=== PATIENT | male | born 1995 ===

== ENCOUNTER 2021-11-17 09:13 | Inpatient (IN) ==
[2021-11-17 09:43] LABS: Basophils % 0.4 %; Eosinophils # 0.4 K/mcL (0.0-0.6); Hematocrit 40.4 % (37.5-50.1); Hemoglobin 13.2 g/dL (12.9-16.9); Immature Granulocytes % 0.3 % (0-4); Lymphocytes # 1.9 K/mcL (0.6-4.6); Lymphocytes % 20.3 %; Mean Corpuscular HGB Conc 32.7 g/dL (31.6-35.5); Mean Corpuscular Hemoglobin 27.7 pg (28.0-33.3); Mean Corpuscular Volume 84.9 fL (83.0-100.0); Mean Platelet Volume 10.2 fL (9.4-12.4); Monocytes # 0.7 K/mcL (0.0-1.3); Monocytes % 7.4 %; Neutrophils # 6.4 K/mcL (1.6-8.9); Platelet Count 437 K/mcL (140-400); Red Blood Count 4.76 M/mcL (4.19-5.50); Red Cell Distribution Width 12.5 % (11.5-14.5); Segmented Neutrophils % 67.6 %; White Blood Count 9.5 K/mcL (4.3-11.1)
[2021-11-17 10:06] LABS: Acetaminophen < 10 mcg/mL (10-20); BUN/Creatinine Ratio 22 (6-26); Blood Urea Nitrogen 21 mg/dL (6-20); Calcium 9.6 mg/dL (8.6-10.3); Carbon Dioxide 30 mEq/L (23-29); Chloride 100 mEq/L (98-107); Chol/HDL Ratio 5.5 (0-4.9); Cholesterol 154 mg/dL (< 200); Ethanol < 10 mg/dL (Less than 10); Glucose 61 mg/dL (70-105); HDL Cholesterol 28 mg/dL (40-59); LDL Cholesterol,Calculated 89 mg/dL (< 100); Osmolality,Calculated 287 (280-300); Potassium 3.2 mEq/L (3.5-5.1); Salicylate < 2.5 mg/dL (15.0-30.0); Sodium 138 mEq/L (136-145); Triglycerides 187 mg/dL (< 150); eGFR For African Americans > 60 (> 60); eGFR For Non-African Americans > 60 (> 60)
[2021-11-17] MEDS ORDERED: Potassium Effervescent 25 MEQ TABLET.EFF PO ONE (10:16)
[2021-11-17 10:48] LABS: Estimated Average Glucose 103 mg/dl; Hemoglobin A1C 5.2 %
[2021-11-17 11:07] LABS: Bilirubin,Urine Negative (Negative); Blood,Urine Negative (Negative); Clarity,Urine Clear (Clear); Color,Urine Yellow (Yellow); Glucose,Urine (UA) Normal (Normal); Ketones,Urine Negative (Negative); Leukocyte Esterase,Urine Negative (Negative); Mucus,Urine Few per lpf (None-Few); Nitrite,Urine Negative (Negative); Protein,Urine 30 mg/dL (Neg-Trace); RBC,Urine 0-3 per hpf (0-3); Specific Gravity,Urine > 1.030 (1.010-1.025); Squamous Epithelial Cell,Urine Few per hpf (None-Few); WBC,Urine 0-3 per hpf (0-3)
[2021-11-17 11:19] LABS: Amphetamine Screen,Urine Positive ng/mL (Cutoff=1000); Barbiturate Screen,Urine Negative ng/mL (Cutoff=200); Benzodiazepines Screen,Urine Negative ng/mL (Cutoff=200); Cannabinoid Screen,Urine Positive ng/mL (Cutoff = 50); Cocaine Screen,Urine Negative ng/mL (Cutoff= 300); Opiate Screen,Urine Negative ng/mL (Cutoff=300); Phencyclidine Screen,Urine Negative ng/mL (Cutoff=25)
[2021-11-17] MEDS: Nicotine 21 MG PATCH.TD24 TD SCH (12:30)
[2021-11-17 15:06] LABS: Influenza A PCR Negative (Negative); Influenza B PCR Negative (Negative); Resp. Syncytial Virus PCR Negative (Negative); SARS-CoV-2 by PCR (In House) Negative (Negative)
[2021-11-18] MEDS: Nicotine 21 MG PATCH.TD24 TD SCH (09:14)
[2021-11-18] MEDS ORDERED: Neosporin OINT 1 APPL PACKET TP ONE (16:49)
[2021-11-18] MEDS ORDERED: hydrOXYzine pamoate 25 MG CAPSULE PO PRN (19:58)
[2021-11-18] MEDS ORDERED: Acetaminophen 325 MG TABLET PO PRN (19:58)
[2021-11-18] MEDS ORDERED: Haloperidol Lactate 5 MG/ML VIAL IM PRN (19:58)
[2021-11-18] MEDS ORDERED: *HR* LORazepam 1 MG TABLET PO PRN (19:58)
[2021-11-18] MEDS ORDERED: *HR* LORazepam 2 MG/ML VIAL IM PRN (19:58)
[2021-11-18] MEDS ORDERED: haloperidoL 5 MG TABLET PO PRN (19:58)
[2021-11-18] MEDS ORDERED: traZODone 50 MG TABLET PO PRN (19:58)
[2021-11-18] MEDS ORDERED: MOM Conc 10 ML UD.LIQ PO PRN (19:58)
[2021-11-19] MEDS: Vitamin B Complex/Vit C/Vit E 1 EACH TABLET PO SCH (08:33)
[2021-11-19] MEDS: Nicotine 21 MG PATCH.TD24 TD SCH (08:33)
[2021-11-19] MEDS: Neosporin OINT 1 APPL PACKET TP PRN ×2 (10:48→20:34)
[2021-11-19] MEDS: QUEtiapine Fumarate 100 MG TABLET PO SCH (20:34)
[2021-11-20] MEDS: Nicotine 21 MG PATCH.TD24 TD SCH (08:26)
[2021-11-20] MEDS: Vitamin B Complex/Vit C/Vit E 1 EACH TABLET PO SCH (08:27)
[2021-11-20] MEDS: QUEtiapine Fumarate 100 MG TABLET PO SCH (20:23)
[2021-11-21] MEDS: Nicotine 21 MG PATCH.TD24 TD SCH (08:36)
[2021-11-21] MEDS: Vitamin B Complex/Vit C/Vit E 1 EACH TABLET PO SCH (08:37)
[2021-11-21 08:58] LABS: Basophils % 0.5 %; Eosinophils # 0.3 K/mcL (0.0-0.6); Eosinophils % 3.1 %; Hematocrit 39.6 % (37.5-50.1); Hemoglobin 13.1 g/dL (12.9-16.9); Immature Granulocytes % 0.4 % (0-4); Lymphocytes # 1.3 K/mcL (0.6-4.6); Lymphocytes % 16.7 %; Mean Corpuscular HGB Conc 33.1 g/dL (31.6-35.5); Mean Corpuscular Hemoglobin 27.8 pg (28.0-33.3); Mean Corpuscular Volume 84.1 fL (83.0-100.0); Mean Platelet Volume 10.2 fL (9.4-12.4); Monocytes # 0.7 K/mcL (0.0-1.3); Monocytes % 8.6 %; Neutrophils # 5.7 K/mcL (1.6-8.9); Platelet Count 391 K/mcL (140-400); Red Blood Count 4.71 M/mcL (4.19-5.50); Red Cell Distribution Width 12.5 % (11.5-14.5); Segmented Neutrophils % 70.7 %
[2021-11-21 09:04] LABS: Alanine Aminotransferase 12 Units/L (7-52); Albumin 3.9 g/dL (3.5-5.7); Albumin/Globulin Ratio 0.9 (1.1-2.2); Alkaline Phosphatase 109 Units/L (34-104); Aspartate Amino Transferase 9 Units/L (13-39); BUN/Creatinine Ratio 21 (6-26); Bilirubin,Total 0.3 mg/dL (0.3-1.0); Blood Urea Nitrogen 15 mg/dL (6-20); Calcium 9.7 mg/dL (8.6-10.3); Carbon Dioxide 29 mEq/L (23-29); Chloride 101 mEq/L (98-107); Globulin 4.3 g/dL (2.4-3.5); Glucose 89 mg/dL (70-105); Osmolality,Calculated 280 (280-300); Potassium 4.2 mEq/L (3.5-5.1); Sodium 135 mEq/L (136-145); Total Protein 8.2 g/dL (6.4-8.9); eGFR For African Americans > 60 (> 60); eGFR For Non-African Americans > 60 (> 60)
[2021-11-21] MEDS: Neosporin OINT 1 APPL PACKET TP PRN (09:43)
[2021-11-21] MEDS: QUEtiapine Fumarate 100 MG TABLET PO SCH (20:48)
[2021-11-22] MEDS: Nicotine 21 MG PATCH.TD24 TD SCH (08:12)
[2021-11-22] MEDS: Vitamin B Complex/Vit C/Vit E 1 EACH TABLET PO SCH (08:12)
[2021-11-22] MEDS ORDERED: QUEtiapine Fumarate 100 MG TABLET PO SCH (21:00)
[2021-11-22 23:11] VITALS: O2SAT 97
[2021-11-23] MEDS: Nicotine 21 MG PATCH.TD24 TD SCH (07:53)
[2021-11-23] MEDS: Vitamin B Complex/Vit C/Vit E 1 EACH TABLET PO SCH (07:54)
[2021-11-23 08:25] VITALS: BP 107/68; PULSE 92; TEMP 98.2
== END 2021-11-23 09:05 | disposition home or self-care (01) | DRG 754 ==
LOC: EMEROOARM 09:13 → 1ANU 11-18 21:00
PROVIDERS: ADMIT Psychiatry & Neurology Forensic Psychiatry; ATTEND Psychiatry & Neurology Forensic Psychiatry